=== PATIENT | female | born 1945 | race Caucasian/White ===

== ENCOUNTER 2016-11-20 06:08 | Emergency (ER) | payer OTHER, BC ==
[~2016-11-20] VITALS: Ht 172.7 cm; Wt 95.8 kg
[~2016-11-20 06:08] MED LIST: CARDIZEM CD,CA240 MG PO; DILTIAZEM 24HR360 M1 PO; HYZAAR 100-21 TABLET PO; MOTRIN600 MG PO; OMEPRAZOLE20 MG PO; VALIUM2 MG PO; XANAX0.5 MG PO
[2016-11-20 06:50] LABS: ADD MIUA? YES; BILIRUBIN NEGATIVE; BLOOD MODERATE; COLOR YELLOW ((YELLOW)); GLUCOSE (STRIP) NEGATIVE; KETONES 5; LEUKOCYTES NEGATIVE; NITRITE NEGATIVE; PROTEIN (STRIP) 30; SPECIFIC GRAVITY 1.023 (1.000-1.030); UROBILINOGEN 0.2 MG/DL (0.2-1.0)
[2016-11-20 06:52] LABS: BACTERIA NONE SEEN /HPF; EPITHELIAL CELLS RARE /HPF; MUCUS TRACE /LPF; RED BLOOD CELLS 0-5 /HPF (0-5); UCUL ADDED? NO; WHITE BLOOD CELLS 0-5 /HPF (0-5)
[2016-11-20 06:56] LABS: EOSINOPHIL (%) 0.3 % (0-5); HEMATOCRIT 38.1 % (36.0-46.0); IMMATURE GRANULOCYTE (%) 0.2 % (0.0-0.7); INSTRUMENT ABS NEUTROPHIL CT 5.4 K/uL; LYMPHOCYTE COUNT 2.5 K/uL (1.0-2.8); MCHC 32.8 G/DL (30.0-36.0); MCV 88.4 FL (83-99); MEAN PLAT.VOLUME 9.4 uM^3 (9.5-12.4); MONOCYTE (%) 6.5 % (3-12); MONOCYTE COUNT 0.6 K/uL (0-0.8); NEUTROPHIL (%) 63.4 % (45-76); NEUTROPHIL COUNT 5.4 K/uL (1.8-6.4); PLATELET COUNT 328 K/uL (156-360); RBC DIS.WIDTH-CV 12.8 % (11.8-14.6); RBC DIS.WIDTH-SD 41.5 % (39-53); RED BLOOD COUNT 4.31 M/uL (3.80-5.20); WHITE BLOOD COUNT 8.6 K/uL (4.1-10.2)
[2016-11-20] MEDS ORDERED: BYSTOLIC5 MG PO (07:01)
[2016-11-20] MEDS ORDERED: LO-DOSE ASPIRIN81 M2 PO (07:02)
[2016-11-20 07:41] LABS: ANION GAP 11 MEQ/L (2-14); CHLORIDE 105 MEQ/L (99-109); POTASSIUM 3.6 MEQ/L (3.7-5.4); SAMPLE HEMOLYSIS CHECK 0; SAMPLE ICTERIC CHECK 0; SAMPLE LIPEMIA CHECK 0; SODIUM 140 MEQ/L (136-147); TOTAL BILIRUBIN 0.3 MG/DL (0.0-1.0)
[2016-11-20 07:47] LABS: ALKALINE PHOSPHATASE 104 IU/L (3-129); GFR ESTIMATE (CALCULATED) 58 mL/min/; GLUCOSE 101 mg/dL (70-99); UREA NITROGEN (BUN) 33 mg/dL (9-23)
[2016-11-20 08:33] LABS: TROP-I INTERPRETATION NEGATIVE; TROPONIN-I 0.01 ng/mL (0.0-0.30)
[2016-11-20 09:49] VITALS: BP 133/50
== END 2016-11-20 10:22 | disposition home or self-care (01) ==
LOC: EME 06:08
PROVIDERS: Emergency Medicine
DX: R53.1 Weakness (principal); R51 Headache; I10 Essential (primary) hypertension
CPT/HCPCS: 70450; 71010; 80053; 81003; 84484; 85025; 93005; 99281; 99284